=== PATIENT | female | born 1985 | race Caucasian/White ===

== ENCOUNTER 2024-03-09 11:58 | Observation (INO) ==
[2024-03-09] MEDS ORDERED: MoRPHine SULFATE 4 MG/ML 1 ML CARP\\VIAL IV PRN (12:10)
[2024-03-09] MEDS: ONDANSETRON INJ 2 MG/ML 2 ML VIAL IV STA (12:18)
[2024-03-09] MEDS: KETOROLAC TROMETHAMINE 15 MG/ML VIAL IV STA (12:18)
[2024-03-09] MEDS: MoRPHine SULFATE 4 MG/ML 1 ML CARP\\VIAL IV STA (12:19)
[2024-03-09] MEDS: SODIUM CHLORIDE 0.9% 1,000 ML IV STA (12:21)
[2024-03-09] MEDS: cefTRIAXone SODIUM 2,000 MG/50 ML BAG IV STA (12:21)
--- NOTE | 2024-03-09 12:30 | Emergency Department Note ---
Impression & Plan Acute right flank pain, Pyelonephritis, Leukocytosis, Failure of outpatient treatment ED Provider Note NAME: CLAUDIO LLANOS AGE: 38 SEX: F : 1985 ARRIVES VIA: Walk-In INFORMANT: [Patient] ED PROVIDER(S): [Rolando Sung MD] CHIEF COMPLAINT: Flank pain HISTORY OF PRESENT ILLNESS: The patient is a 38-year-old female whose had chills and fever for over a week. She states that 3 days ago, she began having some right flank and side pain. She presented to the ED yesterday and was diagnosed with pyelonephritis. The pyelonephritis was diagnosed based on the CT reading, the white blood cell count elevation, her urine results. The patient received IV ceftriaxone and was placed on Bactrim outpatient. The patient presents with increasing flank pain and sweats. She states that she feels no better, in fact, she is worse today. The patient has not had any urinary burning, she did notice some blood in her urine though over the last several days. PMHx/PSHx/Social Hx: See Below PHYSICAL EXAM: GENERAL: Patient is in mild distress from pain. HEENT: No acute trauma, normocephalic atraumatic, mucous membranes moist, no nasal congestion. NECK: No stridor, no adenopathy, no meningismus, trachea is midline. LUNGS: Clear to auscultation bilaterally, no wheeze, no rhonchi, breath sounds equal. HEART: Mildly tachycardic, regular rhythm, no murmurs. ABDOMEN: Soft, tender along the entire right side of the abdomen. EXTREMITIES: No cyanosis, full range of motion of all the joints without pain or difficulty. NEUROLOGIC: Oriented x 3, no acute motor or sensory deficits, no focal weakness. SKIN: No jaundice, no diaphoresis. Back: Right flank discomfort to percussion. DIFFERENTIAL DIAGNOSIS: Pyelonephritis, urinary obstruction, hydronephrosis, renal failure, failed outpatient management, among others. EMERGENCY DEPARTMENT PROCEDURES: MEDICAL DECISION MAKING: There is a mild leukocytosis, this could be consistent with infection. There is a normal hemoglobin. Platelet count slightly elevated at 448. Potassium slightly low, no renal failure. No evidence for pancreatitis. testing returned negative. CT imaging from yesterday did show findings of pyelonephritis without urinary obstruction. Renal ultrasound today did not show any hydronephrosis or urinary obstruction. Patient did seemed uncomfortable. She was given IV saline, IV Zofran, IV morphine. She was given IV Toradol. She was given IV ceftriaxone as antibiotic coverage. Patient has a right sided pyelonephritis, this has caused her presentation. She has failed outpatient treatment. Hospitalization is indicated. I did speak with the patient and case management, the on-call hospitalist was consulted. Prior/Outside records/notes reviewed: Yesterday's ED visit note describing her presentation, her care and the plan outpatient. Imaging/x-ray results per my interpretation: Chronic Medical/Social conditions affecting care: None Care/Management discussed with: Case management, the ED pharmacist, the on- call hospitalist. Level of care consideration(s): After review of the information above and other included data: --I believe the patient requires escalation of care to admission DISPOSITION: Admission Past Med/Surg History Problem List (Updated 03/09/24 @ 19:00 by Rolando Sung MD) Failure of outpatient treatment (Acute) Leukocytosis (Acute) Pyelonephritis (Acute) Acute right flank pain (Acute) Oral thrush Hypokalemia Hepatomegaly Sepsis Pyelonephritis of right kidney (Acute) No significant past surgical history Chest wall pain (Acute) Chest wall pain (Acute) Dental infection (Acute) Facial swelling (Acute) Pain, dental (Acute) Pain, dental (Acute) Scabies (Acute) Medical History Depression ADHD Scabies Infected tooth (03/27/13) Surgical History History of dental surgery Social History Smoking Status: Current every day smoker Tobacco Type: Cigarettes Cigarettes Per Day: 1 PPD; Hx Alcohol Use: No Hx Substance Use: No Preferred Language: Comoran Communication Ability: Effective Psychologist Industrial 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 Required: No Beliefs That Will Affect Care: None marital status: Single Current Living Situation: Alone current occupational status: employed Feels Safe at Home: Yes Safety Concerns: Feels Safe At This Time Assistive Devices: Denture - Upper and Denture - Lower Allergies Allergies Allergy/AdvReac Type Severity Reaction Status Date / Time No Known Allergies Allergy Verified 10/08/19 20:09 Home Meds Home Medications Medication Instructions Recorded Confirmed dextroamphetamine-amphetamine 20 30 mg PO QAM 05/21/19 03/09/24 mg tablet (Adderall) escitalopram oxalate 20 mg tablet 30 mg PO QAM 10/08/19 03/09/24 (Lexapro) alprazolam 0.5 mg tablet 0.5 mg PO BID PRN Anxiety 03/09/24 03/09/24 fluconazole 150 mg tablet 150 mg PO DAILY Oral Thrush 03/09/24 03/09/24 phenazopyridine 200 mg tablet 200 mg PO TID PRN Urinary Pain 03/09/24 03/09/24 (Pyridium) Previous Rx's Medication Instructions Recorded sulfamethoxazole 800 1 tab PO BID 14 days #28 tabs 03/08/24 mg-trimethoprim 160 mg tablet (Bactrim DS) Results & Data (ED) Vital Signs Vital Signs - 24 hr 03/09/24 12:00 Temperature 36.9 C Temperature Source Temporal Artery Scan Pulse Rate 112 H Respiratory Rate 20 Respiratory Effort / Characteristics Non-Labored Respiratory Depth Normal Blood Pressure 131/76 Blood Pressure Mean 94 Pulse Oximetry 100 Oxygen Delivery Method Room Air Sepsis Recent Fever Within 48 Hours No Sepsis New/Unexplained Change in Mental Status No Sepsis Action Taken by Nursing No Action Required Home Medications Current Medication List: was personally reviewed by me Laboratory Data Attestation: I reviewed the patient's lab results. 03/09/24 12:13 03/09/24 12:13 Lab Results 03/09/24 Range/Units 12:13 WBC 12.47 H (4.8-10.8) K/ul RBC 4.34 (4.20-5.40) M/uL Hgb 12.9 (12.0-16.0) g/dl Hct 37.9 (37.0-47.0) % MCV 87.3 (80.0-100.0) fL MCH 29.7 (25.0-34.0) pg MCHC 34.0 (32.0-36.0) g/dL RDW Std Deviation 43.8 (36.4-46.3) fL RDW Coeff of Larry 13.6 (11.5-14.5) % Plt Count 448 H D (130-400) K/uL MPV 9.6 (9.4-12.4) fL Immature Gran % (Auto) 0.6 % Neut % (Auto) 77.7 % Lymph % (Auto) 14.9 % [place] % (Auto) 5.9 % Eos % (Auto) 0.6 % Baso % (Auto) 0.3 % Neut # (Auto) 9.69 H (1.40-6.50) K/uL Lymph # (Auto) 1.86 (1.20-3.40) K/uL [place] # (Auto) 0.73 H (0.11-0.59) K/uL Eos # (Auto) 0.07 (0.00-0.50) K/uL Baso # (Auto) 0.04 (0.00-0.20) K/uL Immature Gran # (Auto) 0.08 (0.01-0.20) K/uL Sodium 136 (136-145) mmol/L Potassium 3.2 L (3.5-5.1) mmol/L Chloride 97 L (98-107) mmol/L Carbon Dioxide 27 (21-32) mmol/L Anion Gap 12 H (3-11) BUN 11 (6-23) mg/dl Creatinine 0.60 (0.6-1.2) mg/dl Est Cr Clr Drug Dosing 114.5 ml/min eGFR 118.49 BUN/Creatinine Ratio 18.3 (10-20) Glucose 120 H (70-99(Fasting)) mg/dl Calcium 9.0 (8.6-10.3) mg/dl Lipase 11 (11-82) U/L HCG, Qual Negative (Negative) Administered Medications Acetaminophen (Acetaminophen 325 Mg Tab) 650 mg PO Q6H PATT Stop: 04/08/24 15:59 Last Admin: 03/09/24 16:41 Dose: 650 mg Documented By: DERECK Enoxaparin Sodium (Enoxaparin Inj 40 Mg/0.4 Ml Syr) 40 mg SQ DAILY PATT Stop: 04/08/24 15:59 Last Admin: 03/09/24 16:43 Dose: Not Given Documented By: DERECK Sodium Chloride (Nss) 1,000 mls @ 60 mls/hr IV .[id number] PATT Stop: 03/10/24 08:39 Last Admin: 03/09/24 16:06 Dose: 60 mls/hr Documented By: DERECK Lactobacillus Acidophilus (Advanced Probiotic 625 Mg Capsule) 1,250 mg PO DAILY [facility] Stop: 04/08/24 15:55 Last Admin: 03/09/24 16:43 Dose: 1,250 mg Documented By: DERECK Morphine Sulfate (Morphine Sulfate 2 Mg/Ml Carp) 1 mg IV Q4H PRN PRN Reason: Mod-Sev Pain (Scale 4-10) Stop: 03/23/24 15:55 Last Admin: 03/09/24 17:32 Dose: 1 mg Documented By: DERECK Nystatin (Nystatin Susp 500,000 U/5 Ml Udc) 5 ml PO QID PATT Stop: 03/19/24 16:59 Last Admin: 03/09/24 16:42 Dose: 5 ml Documented By: DERECK Ondansetron HCl (Ondansetron Inj 2 Mg/Ml 2 Ml Vial) 4 mg IV Q6H PRN PRN Reason: Nausea/Vomiting Stop: 04/08/24 15:55 Last Admin: 03/09/24 17:32 Dose: 4 mg Documented By: DERECK Phenazopyridine HCl (Phenazopyridine Hcl 100 Mg Tab) 100 mg PO TID PRN PRN Reason: Dysuria Stop: 04/08/24 15:55 Last Admin: 03/09/24 16:42 Dose: 100 mg Documented By: DERECK Discontinued Medications Sodium Chloride (Nss) 1,000 mls @ 999 mls/hr IV .Q1H1M STA Stop: 03/09/24 13:10 Last Infusion: 03/09/24 14:11 Dose: Infused Documented By: Admin: 03/09/24 12:21 Dose: 999 mls/hr Documented By: VENITA Ceftriaxone Sodium (Rocephin) 2,000 mg in 50 mls @ 100 mls/hr IV NOW STA Stop: 03/09/24 12:40 Last Infusion: 03/09/24 12:53 Dose: Infused Documented By: Admin: 03/09/24 12:21 Dose: 100 mls/hr Documented By: VENITA Potassium Chloride (K Martinez / Wtr) 10 meq in 100 mls @ 100 mls/hr IV Q1H [facility]; Protocol Stop: 03/09/24 16:59 Last Infusion: 03/09/24 18:54 Dose: Infused Documented By: Admin: 03/09/24 17:32 Dose: 75 mls/hr Documented By: Infusion: 03/09/24 17:26 Dose: Infused Documented By: Admin: 03/09/24 16:06 Dose: 75 mls/hr Documented By: Infusion: 03/09/24 15:43 Dose: Infused Documented By: Admin: 03/09/24 14:23 Dose: 75 mls/hr Documented By: Infusion: 03/09/24 14:23 Dose: Infused Documented By: Infusion: 03/09/24 13:45 Dose: 75 mls/hr Documented By: Admin: 03/09/24 13:13 Dose: 100 mls/hr Documented By: VENITA Ketorolac Tromethamine (Ketorolac Tromethamine 15 Mg/Ml Vial) 10 mg IV NOW STA Stop: 03/09/24 12:11 Last Admin: 03/09/24 12:18 Dose: 10 mg Documented By: VENITA Morphine Sulfate (Morphine Sulfate 4 Mg/Ml 1 Ml Carp\Vial) 4 mg IV NOW STA Stop: 03/09/24 12:11 Last Admin: 03/09/24 12:19 Dose: 4 mg Documented By: VENITA Ondansetron HCl (Ondansetron Inj 2 Mg/Ml 2 Ml Vial) 4 mg IV NOW STA Stop: 03/09/24 12:11 Last Admin: 03/09/24 12:18 Dose: 4 mg Documented By: VENITA Imaging Data Radiologist's Impression: Renal Ultrasound 03/09/24 12:10 US renal/blad retro comp CLINICAL HISTORY: flank pain TECHNIQUE: Multiple sonographic real-time images of the kidneys and bladder were obtained. COMPARISON: Comparison is made to CT abdomen pelvis 03/08/2024 FINDINGS: The right kidney measures 14.9 cm in length, and the left kidney measures 13.9 cm in length. The right kidney is normal in size, contour, cortical thickness, and is mildly heterogeneous. No hydronephrosis is identified. No renal lesion is identified. The left kidney is normal in size, contour, cortical thickness and is mildly heterogeneous. No hydronephrosis is identified. No renal lesion is identified. The bladder is partially distended. No large intraluminal mass is seen. IMPRESSION: No acute abnormalities and in particular no evidence of obstruction. Heterogeneous echotexture of the kidneys is nonspecific. ACT 112: Negative or not required by law. Electronically signed by: Channing Prather M.D. 03/09/2024 2:37 PM Discharge Plan Visit Data Chief Complaint: Flank Pain Stated Complaint: RT KIDNEY INFECTION ED Provider: Rolando Sung Discharge Problem: Acute right flank pain, Pyelonephritis, Leukocytosis, Failure of outpatient treatment Patient Disposition: Admitted As Inpatient Condition: Fair Discharge Instructions Interventions: ED Discharge Assessment Last Done: 03/09/24 15:46 Discharge Problem: Leukocytosis Qualifiers: Leukocytosis type: unspecified Qualified Code(s): D72.829 - Elevated white blood cell count, unspecified
[2024-03-09 12:35] LABS: Hematocrit (blood only) 37.9 % (37.0-47.0); Hemoglobin 12.9 g/dl (12.0-16.0); Mean Corpuscular Hemoglobin 29.7 pg (25.0-34.0); Mean Corpuscular Volume 87.3 fL (80.0-100.0); Mean Platelet Volume 9.6 fL (9.4-12.4); Platelet Count 448 K/uL (130-400); RDW Coefficient of Variation 13.6 % (11.5-14.5); RDW Standard Deviation 43.8 fL (36.4-46.3); Red Blood Count 4.34 M/uL (4.20-5.40); White Blood Count 12.47 K/ul (4.8-10.8)
--- NOTE | 2024-03-09 12:42 | History & Physical Report ---
Date of Service March 09, 2024 Assessment & Plan (1) Sepsis: (2) Pyelonephritis of right kidney: (3) Hepatomegaly: (4) Oral thrush: (5) Hypokalemia: Plan Lilliam Camacho is a 38y/o F with PMHx significant for chronic rhinitis, contact dermatitis, major depressive disorder, ADHD, anxiety and insomnia who presented to the ED on 03/09/2024 secondary to worsening right-sided flank pain. Of note, patient was seen in the ED yesterday due to right-sided flank pain and found to have right-sided pyelonephritis. She received 1g IV Rocephin in the ED and was discharged on a 14-day course of oral Bactrim without significant improvement in her right-sided flank pain. Sepsis 2/2 Pyelonephritis of R Kidney: Met sepsis criteria on admission 2/2 tachycardia, leukocytosis + source of infection. S/p 1L NSS in the ED. CTAP from 03/08 --> Edematous right kidney, mild right perinephritic edema and fluid, mildly inflamed right urinary tract. WBC improving from 18k on 03/08 -> 12k today. Urine culture from 03/08 growing E. coli, sensitivities to follow. Urology consulted. US renal/bladder pending from ED. Continue IV Rocephin. Probiotic added on. PRN pain control, additional 1L LR's x 1 bag. Continue phenazopyridine PRN for dysuria. Blood cultures pending. Hepatomegaly: Was incidentally noted on CTAP yesterday. Will check LFTs in AM, may benefit from liver US. Oral Thrush - [employer]: Patient being treated for oral thrush [employer]. Will continue Nystatin swish+swallow, continue to monitor. Hypokalemia: K+ 3.2 on admission - repleted via IV 10mEq KCl x 4 bags in the ED. Recheck electrolytes in AM and manage PRN. Other Chronic Medical Conditions: ADHD, depression/anxiety --> Can continue home medications for these specific conditions while admitted. DVT Prophylaxis: SQ Lovenox Code Status: FULL CODE PCP: Rodrigue Diallo MD Disposition: Observation in Med/Telemetry Patient seen in collaboration with Dr. Ramos. Please see addendum. I spent a total of 55 minutes coordinating, documenting, and providing care for this patient excluding time spent in the performance of separately billed services. This included personally reviewing all current laboratories and imaging studies, medical reconciliation, outpatient chart review and discussion with specialists. This chart was completed in part utilizing Speech Voice Recognition Software. Grammatical errors, random word insertions, pronoun errors, and incomplete sentences are an occasional consequence of this system due to software limitations, ambient noise, and hardware issues. Any formal questions or concerns about the content, text, or information contained within the body of this dictation should be directly addressed to the provider for clarification. History of Present Illness Chief Complaint: Worsening Right-Sided Flank Pain, Recent Diagnosis of Pyelonephritis Primary Care Provider: Rodrigue Diallo MD Lilliam Camacho is a 38y/o F with PMHx significant for chronic rhinitis, contact dermatitis, major depressive disorder, ADHD, anxiety and insomnia who presented to the ED on 03/09/2024 secondary to worsening right-sided flank pain. History obtained from patient and associated chart review. Of note, patient was seen and evaluated in the ED yesterday due to right-sided flank pain. Additional complaints per ER documentation at that time included chills/intermittent fevers, foul-smelling urine, urinary urgency and dysuria. UA was positive for infection, WBC was elevated at 18k. CTAP yesterday revealed the following: edematous right kidney, mild right perinephritic edema and fluid, mildly inflamed right urinary tract and hepatomegaly. She received 1g IV Rocephin in the ED and was discharged on a 14-day course of oral Bactrim. Patient reports that the right-sided flank pain has progressively gotten worse since yesterday - mentions this pain started about 3 days ago. She woke up in the middle of the night drenched in sweat and battling chills. No recorded fever overnight however she has had intermittent fevers for the past week or so - highest recorded fever at home was 102F. Her dysuria is improving as she is taking phenazopyridine. She denies any yo blood in her urine however she endorses this is difficult to tell due to the orange-colored appearance her urine has due to taking the phenazopyridine. She still endorses that her urine is foul-smelling. She has been battling some intermittent nausea but no episodes of vomiting. Endorses good hydration status at home however her appetite has been overall poor - most recent meal was last evening and consisted of 2 tacos. She reports that she has been feeling fatigued and overall weak for the past week or so. No prior alcohol use. Patient does smoke cigarettes - approximately 1 pack/day, but has not been smoking over the past 3 days due to this right- sided flank pain. Denies need for nicotine patch at this time. Mentions that she has a medical marijuana card for her anxiety/depression but has not been using any marijuana for the past week or so due to her feeling so ill. She denies any chest pain, SOB or palpitations. She did have 1 episode of diarrhea yesterday morning which has since resolved. She reports her right-sided flank pain is typically sharp and worse with movement. Denies any previous kidney issues or history of recurrent UTIs. Patient does wear dentures at baseline and was being treated for oral thrush prior to arrival - this has not yet resolved entirely. Patient does meet sepsis criteria on admission secondary to tachycardia, leukocytosis and known source of infection. WBC is improving from 18k yesterday to 12.4k today. S/p 2g IV Rocephin, 1L NSS in the ED. She also received IV Zofran and IV morphine in the ED - reports her pain is controlled during our conversation when she is at rest. Allergies Allergy/AdvReac Type Severity Reaction Status Date / Time No Known Allergies Allergy Verified 10/08/19 20:09 Home Medications Medication Instructions Recorded Confirmed Type dextroamphetamine-amphetamine 20 30 mg PO QAM 05/21/19 03/09/24 History mg tablet (Adderall) escitalopram oxalate 20 mg tablet 30 mg PO QAM 10/08/19 03/09/24 History (Lexapro) sulfamethoxazole 800 1 tab PO BID 14 days #28 tabs 03/08/24 03/09/24 Rx mg-trimethoprim 160 mg tablet (Bactrim DS) alprazolam 0.5 mg tablet 0.5 mg PO BID PRN Anxiety 03/09/24 03/09/24 History fluconazole 150 mg tablet 150 mg PO DAILY Oral Thrush 03/09/24 03/09/24 History phenazopyridine 200 mg tablet 200 mg PO TID PRN Urinary Pain 03/09/24 03/09/24 History (Pyridium) Past Med/Surg History Problem List Oral thrush Hypokalemia Hepatomegaly Sepsis Pyelonephritis of right kidney (Acute) No significant past surgical history Chest wall pain (Acute) Chest wall pain (Acute) Dental infection (Acute) Facial swelling (Acute) Pain, dental (Acute) Pain, dental (Acute) Scabies (Acute) Medical History Depression ADHD Scabies Infected tooth (03/27/13) Surgical History History of dental surgery Social History Smoking Status: Current every day smoker Tobacco Type: Cigarettes Preferred Language: Latvian marital status: Single current occupational status: employed Feels Safe at Home: Yes Review of Systems Review of Systems: At least ten systems reviewed and negative, except as noted in the HPI. Physical Exam Physical Exam: General: Thin, ill-appearing, vitals as above, NAD, sitting up in bed, pleasant, conversing appropriately. A+Ox3, euthymic affect. HEENT: Normocephalic, atraumatic. Conjunctivae normal, anicteric sclerae. External ear and nose normal, oropharynx little dry. Respiratory: Normal respiratory effort, lungs clear to auscultation, no wheeze/rales/rhonchi. No accessory muscle use. Cardiovascular: Regular rate, rhythm, normal peripheral pulses, no BLE edema. Vessels: No JVD. Abdomen/GI: Active bowel sounds, TTP in RUQ and RLQ regions, R CVA tenderness. No L CVA tenderness. Extremities/Musculoskeletal: No cyanosis or clubbing, extremities motor strength intact, moves all extremities. Neurologic: No overt focal deficits, CN's II-XI not formally tested but appear grossly intact bilaterally. Skin: No rashes, normal color, warm/dry. Results & Data Results & Data Vital Signs (Past 12 Hours) Vital Signs Temp Pulse Resp BP Pulse Ox O2 Del Method 03/09/24 12:00 36.9 C 112 H 20 131/76 100 Room Air Laboratory Results Short CBC 03/09/24 Range/Units 12:13 WBC 12.47 H (4.8-10.8) K/ul Hgb 12.9 (12.0-16.0) g/dl Hct 37.9 (37.0-47.0) % Plt Count 448 H D (130-400) K/uL [facility] 03/09/24 12:13 Sodium 136 Potassium 3.2 L Chloride 97 L Carbon Dioxide 27 BUN 11 Creatinine 0.60 Glucose 120 H Calcium 9.0 Medications Administered Sodium Chloride (Nss) 1,000 mls @ 999 mls/hr IV .Q1H1M STA Stop: 03/09/24 13:10 Last Admin: 03/09/24 12:21 Dose: 999 mls/hr Documented By: VENITA Discontinued Medications Ceftriaxone Sodium (Rocephin) 2,000 mg in 50 mls @ 100 mls/hr IV NOW STA Stop: 03/09/24 12:40 Last Admin: 03/09/24 12:21 Dose: 100 mls/hr Documented By: VENITA Ketorolac Tromethamine (Ketorolac Tromethamine 15 Mg/Ml Vial) 10 mg IV NOW STA Stop: 03/09/24 12:11 Last Admin: 03/09/24 12:18 Dose: 10 mg Documented By: VENITA Morphine Sulfate (Morphine Sulfate 4 Mg/Ml 1 Ml Carp\Vial) 4 mg IV NOW STA Stop: 03/09/24 12:11 Last Admin: 03/09/24 12:19 Dose: 4 mg Documented By: VENITA Ondansetron HCl (Ondansetron Inj 2 Mg/Ml 2 Ml Vial) 4 mg IV NOW STA Stop: 03/09/24 12:11 Last Admin: 03/09/24 12:18 Dose: 4 mg Documented By: VENITA Code Status & VTE Plan Code Status FULL CODE Supervising Physician Co-Signing Physician Notes 38-year-old female with PMH of chronic rhinitis, contact dermatitis, major depressive disorder, ADHD, anxiety, insomnia presented to the ED 03/18 for right flank pain and diagnosed with right-sided pyelonephritis, given rocephin in ED and sent home on Bactrim. Patient reports that she had high fever in the night (didn't measure), was drenched in sweat, had chills, felt worse, decided to come to the ED 03/09. Patient reports having fever since last 1 week ago [employer], reports right-sided flank pain since 3 to 4 days ago, reports pain and burning while passing urine since 3 to 4 days. Denies any purulent discharge, denies any genitourinary ulcers. Denies any history of recurrent UTI. WBC in fact is improving today, patient still tachycardic, patient in sepsis se condary to pyelonephritis. Will continue Rocephin, add probiotic, urology consult, draw blood culture. Gentle ivf x 1 bag LR. Hypokalemia: K 3.2, give KCL 40 meq. On exam: GENERAL: Alert and oriented x3. NAD, on RA. appears ill HEENT: No pallor, no icterus. Pupils equal, round and reactive to light. Oral mucosa dry. NECK: No JVD, no neck masses. HEART: S1 and S2 heard. Regular rate and rhythm. HR in 90s. No murmur, no gallop. RESPIRATORY SYSTEM: Normal AP diameter. No accessory muscle use. No wheezing, no crackles. ABDOMEN: Soft, bowel sounds present, Rt lumbar tenderness, no distention. CENTRAL NERVOUS SYSTEM: No facial droop. Speech is clear. Obeys simple commands. Moves extremities. EXTREMITIES: No edema, no erythema seen. Rt CVA tenderness noted, no Lt CVA tender. I have seen and examined the patient and have discussed the case with the provider above. I agree with the assessment and plan as stated. Time spent: 30 min (1) Sepsis Sepsis acute organ dysfunction status: without acute organ dysfunction Sepsis type: sepsis due to unspecified organism Qualified Code(s): A41.9 - Sepsis, unspecified organism
[2024-03-09 12:47] LABS: BUN Creatinine Ratio 18.3 (10-20); Creatinine Clr Calc Pharmacy 114.5 ml/min; Potassium 3.2 mmol/L (3.5-5.1)
[2024-03-09 13:01] LABS: Basophils # (auto) 0.04 K/uL (0.00-0.20); Basophils % (auto) 0.3 %; Eosinophils # (auto) 0.07 K/uL (0.00-0.50); Eosinophils % (auto) 0.6 %; Immature Granulocytes # (auto) 0.08 K/uL (0.01-0.20); Immature Granulocytes % (auto) 0.6 %; Lymphocytes # (auto) 1.86 K/uL (1.20-3.40); Lymphocytes % (auto) 14.9 %; Monocytes # (auto) 0.73 K/uL (0.11-0.59); Monocytes % (auto) 5.9 %; Neutrophils # (auto) 9.69 K/uL (1.40-6.50); Neutrophils % (auto) 77.7 %; Pregnancy Test, Serum Negative (Negative)
[2024-03-09] MEDS: POTASSIUM CHLORIDE / WTR 10 MEQ/100 ML PLCT IV SCH (13:13)
--- NOTE | 2024-03-09 14:39 | Ultrasound Report ---
US renal/blad retro comp CLINICAL HISTORY: flank pain TECHNIQUE: Multiple sonographic real-time images of the kidneys and bladder were obtained. COMPARISON: Comparison is made to CT abdomen pelvis 03/08/2024 FINDINGS: The right kidney measures 14.9 cm in length, and the left kidney measures 13.9 cm in length. The right kidney is normal in size, contour, cortical thickness, and is mildly heterogeneous. No hydr onephrosis is identified. No renal lesion is identified. The left kidney is normal in size, contour, cortical thickness and is mildly heterogeneous. No hydro nephrosis is identified. No renal lesion is identified. The bladder is partially distended. No large intraluminal mass is seen. IMPRESSION: No acute abnormalities and in particular no evidence of obstruction. Heterogeneous echotexture of the kidneys is nonspecific. ACT 112: Negative or not required by law. Electronically signed by: Channing Prather M.D. 03/09/2024 2:37 PM
[2024-03-09] MEDS ORDERED: POLYETHYLENE (MIRALAX) 17 GM PACK PO PRN (15:56)
[2024-03-09] MEDS: SODIUM CHLORIDE 0.9% 1,000 ML IV SCH (16:06)
[2024-03-09] MEDS: ACETAMINOPHEN 325 MG TAB PO SCH (16:41)
[2024-03-09] MEDS: PHENAZOPYRIDINE HCL 100 MG TAB PO PRN (16:42)
[2024-03-09] MEDS: NYSTATIN SUSP 500,000 U/5 ML UDC PO SCH (16:42)
[2024-03-09] MEDS: ADVANCED PROBIOTIC 625 MG CAPSULE PO SCH (16:43)
[2024-03-09] MEDS: ENOXAPARIN INJ 40 MG/0.4 ML SYR SQ SCH (16:43)
--- NOTE | 2024-03-09 16:51 | Urology Consultation ---
Date of Consultation March 09, 2024 Assessment & Plan (1) Pyelonephritis of right kidney: Plan - Afebrile with stable vitals at present - Labs show mild leukocytosis of 12.47 normal renal function - Urine culture prelim E. coli; blood cultures pending - Voiding spontaneously, continue to monitor. Bladder scan as needed. - CT abdomen pelvis from 03/08 shows right kidney is edematous, mild right perinephric edema and fluid, mildly inflamed right urinary tract. - Renal ultrasound today shows no acute abnormalities and no evidence of obstruction. - No acute intervention warranted - Continue antibiotics and tailor as culture data becomes available - Continue supportive care - Will arrange outpatient follow-up with our service - Urology will sign off. Please call with any further questions, concerns, or changes in patient status. History of Present Illness Attending Physician: Lili Ramos MD History of Present Illness 38-year-old female who presented to the ED on 03/09/2024 secondary to worsening right flank pain. Patient was seen in the ED yesterday 03/08 due to right-sided flank pain and found to have right-sided pyelonephritis. She received 1g of IV Rocephin in the ED and was discharged home on a 14-day course of oral Bactrim. Due to worsening right flank pain, she returned to the ED today. On arrival she was afebrile and tachycardic. Labs show WBC improving from 18K- 12K today. Normal renal function. Urine culture from 03/08 preliminary with E. coli. Blood culture pending. CT abdomen pelvis from 03/08 shows right kidney is edematous, mild right perinephric edema and fluid, mildly inflamed right urinary tract. Renal ultrasound today shows no acute abnormalities and no evidence of obstruction. She is on IV Rocephin. Pt admitted to medicine service. Urology consulted for Right sided pyelonephritis. Patient was seen at bedside today in the ED. Awake and resting in bed on arrival. No acute distress. Patient denies prior history. She denies history of UTI. She reports approximately 1 week of UTI-like symptoms including chills, malodorous urine. She then developed severe right flank pain which prompted her arrival in the ED. Denies hematuria, dysuria, fever. Allergies Allergy/AdvReac Type Severity Reaction Status Date / Time No Known Allergies Allergy Verified 10/08/19 20:09 Home Medications Medication Instructions Recorded Confirmed Type dextroamphetamine-amphetamine 20 30 mg PO QAM 05/21/19 03/09/24 History mg tablet (Adderall) escitalopram oxalate 20 mg tablet 30 mg PO QAM 10/08/19 03/09/24 History (Lexapro) sulfamethoxazole 800 1 tab PO BID 14 days #28 tabs 03/08/24 03/09/24 Rx mg-trimethoprim 160 mg tablet (Bactrim DS) alprazolam 0.5 mg tablet 0.5 mg PO BID PRN Anxiety 03/09/24 03/09/24 History fluconazole 150 mg tablet 150 mg PO DAILY Oral Thrush 03/09/24 03/09/24 History phenazopyridine 200 mg tablet 200 mg PO TID PRN Urinary Pain 03/09/24 03/09/24 History (Pyridium) Patient History Medical History Depression ADHD Scabies Infected tooth (03/27/13) Surgical History History of dental surgery Social History Smoking Status: Current every day smoker Tobacco Type: Cigarettes Cigarettes Per Day: 1 PPD; Hx Alcohol Use: No Hx Substance Use: No Preferred Language: Tunisian Communication Ability: Effective Car Escort Required: No Beliefs That Will Affect Care: None marital status: Single Current Living Situation: Alone current occupational status: employed Feels Safe at Home: Yes Safety Concerns: Feels Safe At This Time Assistive Devices: Denture - Upper and Denture - Lower Review of Systems Review of Systems: All systems reviewed & are unremarkable except as noted in HPI & below Physical Exam Constitutional: no acute distress Respiratory: no respiratory distress and no labored breathing Musculoskeletal: Head/Neck/Chest: normocephalic Skin: No visible rashes or lesions to exposed skin areas Neurologic: moves all extremities and awake Psychiatric: A+Ox3, euthymic affect Results & Data Vital Signs (Past 12 Hours) Vital Signs Temp Pulse Pulse Resp BP BP Pulse Ox 03/09/24 16:20 91 H 03/09/24 15:56 36.8 C 89 16 117/72 100 03/09/24 15:46 03/09/24 14:15 79 16 94/54 L 99 03/09/24 13:06 92 H 03/09/24 12:00 36.9 C 112 H 20 131/76 100 O2 Del Method 03/09/24 16:20 03/09/24 15:56 Room Air 03/09/24 15:46 Room Air 03/09/24 14:15 Room Air 03/09/24 13:06 03/09/24 12:00 Room Air PG Care Time/CCT Total # of Minutes Spent Total Time Spent with Patient: Total time spent is greater than 50% in coordination of care (as documented) at patient's floor/unit and/or counseling patient: Coding Level of Care Code 39529 IN/OBS CONSULT LVL 3,45M Diagnoses Pyelonephritis of right kidney N12
[2024-03-09] MEDS: ONDANSETRON INJ 2 MG/ML 2 ML VIAL IV PRN (17:32)
[2024-03-09] MEDS: MoRPHine SULFATE 2 MG/ML CARP IV PRN (17:32)
[2024-03-10 07:03] LABS: Hematocrit (blood only) 30.5 % (37.0-47.0); Hemoglobin 10.2 g/dl (12.0-16.0); Mean Corpuscular Hemoglobin 30.1 pg (25.0-34.0); Mean Corpuscular Hgb Conc 33.4 g/dL (32.0-36.0); Mean Platelet Volume 9.6 fL (9.4-12.4); Platelet Count 458 K/uL (130-400); RDW Standard Deviation 46.6 fL (36.4-46.3); Red Blood Count 3.39 M/uL (4.20-5.40); White Blood Count 8.16 K/ul (4.8-10.8)
[2024-03-10 07:23] LABS: Albumin Globulin Ratio 0.7 (0.9-2); Albumin Level 2.6 gm/dl (3.4-5.0); BUN Creatinine Ratio 27.6 (10-20); Bilirubin,Total 0.3 mg/dl (0.2-1.0); Calcium 8.1 mg/dl (8.6-10.3); Creatinine Clr Calc Pharmacy 119.5 ml/min; Globulin 3.5 gm/dl (2.5-4.0); Magnesium 1.8 mg/dl (1.7-2.4); Phosphorus 3.8 mg/dl (2.5-4.9); Total Protein 6.1 gm/dl (6.0-8.3)
--- NOTE | 2024-03-10 07:57 | Electrocardiogram Report ---
Test Reason : Blood Pressure : */* mmHG Vent. Rate : 83 BPM Atrial Rate : 83 BPM P-R Int : 136 ms QRS Dur : 78 ms QT Int : 364 ms P-R-T Axes : 71 25 49 degrees QTcB Int : 427 ms Poor data quality, interpretation may be adversely affected Normal sinus rhythm Normal ECG When compared with ECG of 24-Sep-2013 08:02, Nonspecific T wave abnormality no longer evident in Inferior leads Confirmed by Orlin Araujo ([id number]) on 03/10/2024 7:57:14 AM Referred By: REFERRED SELF Confirmed By: Orlin Araujo
[2024-03-10] MEDS: DEXTROAMPHETAMINE/AMPHETAMINE IR 10 MG TAB PO SCH (08:45)
[2024-03-10] MEDS: cefTRIAXone SODIUM 2,000 MG/50 ML BAG IV SCH (08:46)
[2024-03-10] MEDS: ESCITALOPRAM OXALATE 10 MG TAB PO SCH (08:47)
[2024-03-10] MEDS: ALPRAZolam 0.5 MG TABLET PO PRN (12:28)
--- NOTE | 2024-03-10 15:49 | Hospitalist Progress Note ---
Date of Service March 10, 2024 Assessment & Plan (1) Sepsis: (2) Pyelonephritis of right kidney: (3) Hepatomegaly: (4) Oral thrush: (5) Hypokalemia: Plan Lilliam Camacho is a 38y/o F with PMHx significant for chronic rhinitis, contact dermatitis, major depressive disorder, ADHD, anxiety and insomnia who presented to the ED on 03/09/2024 secondary to worsening right-sided flank pain. Of note, patient was seen in the ED yesterday due to right-sided flank pain and found to have right-sided pyelonephritis. She received 1g IV Rocephin in the ED and was discharged on a 14-day course of oral Bactrim without significant improvement in her right-sided flank pain. Patient admitted for pyelonephritis. Cultures with fitzpatrick-sensitive ecoli. Will transition to PO cipro for pyelo, likely dispo tomorrow. #Sepsis 2/2 Pyelonephritis of R Kidney: Met sepsis criteria on admission 2/2 tachycardia, leukocytosis + source of infection. S/p 1L NSS in the ED. CTAP from 03/08 --> Edematous right kidney, mild right perinephritic edema and fluid, mildly inflamed right urinary tract. WBC improving from 18k on 03/08 -> 12k today. Urine culture from 03/08 growing E. coli, sensitivities to follow. Urology consulted. US renal/bladder pending from ED. Continue IV Rocephin. Probiotic added on. PRN pain control, additional 1L LR's x 1 bag. Continue phenazopyridine PRN for dysuria. Blood cultures NGTD Transition to Ciprofloxacin BID in am, likely discharge tomorrow morning Hepatomegaly: Was incidentally noted on CTAP yesterday. LFTS stable, no symptoms. 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 Will continue Nystatin swish+swallow, continue to monitor. Hypokalemia: K+ 3.2 on admission - repleted via IV 10mEq KCl x 4 bags in the ED. Recheck electrolytes in AM and manage PRN. Other Chronic Medical Conditions: ADHD, depression/anxiety --> Can continue home medications for these specific conditions while admitted. DVT Prophylaxis: SQ Lovenox Code Status: FULL CODE PCP: Rodrigue Diallo MD Disposition: Observation in Med/Telemetry Admission and Anticipated Discharge Date Admission Date: March 09, 2024 Subjective NAEO Doing much better, just feeling tired now No nausea or vomiting or other acute concerns Physical Exam Constitutional: WD/WN, vitals as above Respiratory: normal respiratory effort, lungs clear to auscultation Cardiovascular: RRR, no murmur, no edema Gastrointestinal (Abdomen): normal bowel sounds, soft, nontender, no hepatosplenomegaly Results & Data Results & Data Vital Signs (Past 12 Hours) Vital Signs Temp Pulse Pulse Pulse Resp BP Pulse Ox 03/10/24 15:36 37.0 C 79 18 105/66 99 03/10/24 15:10 87 03/10/24 11:26 36.6 C 79 18 104/70 99 03/10/24 07:56 88 03/10/24 07:19 36.9 C 79 18 94/57 L 97 03/10/24 04:00 37.0 C 79 18 105/66 98 O2 Del Method 03/10/24 15:36 Room Air 03/10/24 15:10 03/10/24 11:26 Room Air 03/10/24 07:56 03/10/24 07:19 Room Air 03/10/24 04:00 Room Air Laboratory Results Short CBC 03/10/24 Range/Units 06:25 WBC 8.16 (4.8-10.8) K/ul Hgb 10.2 L (12.0-16.0) g/dl Hct 30.5 L (37.0-47.0) % Plt Count 458 H (130-400) K/uL BMP 03/10/24 06:25 Sodium 138 Potassium 4.0 D Chloride 103 Carbon Dioxide 29 BUN 16 Creatinine 0.58 L Glucose 140 H Calcium 8.1 L Liver Function 03/10/24 Range/Units 06:25 Total Bilirubin 0.3 (0.2-1.0) mg/dl AST 29 (13-39) U/L ALT 33 (7-52) U/L Alkaline Phosphatase 108 H (34-104) U/L Albumin 2.6 L (3.4-5.0) gm/dl Medications Administered Home Medications Medication Instructions Recorded Confirmed Last Taken dextroamphetamine-amphetamine 20 30 mg PO QAM 05/21/19 03/09/24 05/21/19 mg tablet (Adderall) escitalopram oxalate 20 mg tablet 30 mg PO QAM 10/08/19 03/09/24 Unknown (Lexapro) sulfamethoxazole 800 1 tab PO BID 14 days #28 tabs 03/08/24 03/09/24 Unknown mg-trimethoprim 160 mg tablet (Bactrim DS) alprazolam 0.5 mg tablet 0.5 mg PO BID PRN Anxiety 03/09/24 03/09/24 Unknown fluconazole 150 mg tablet 150 mg PO DAILY Oral Thrush 03/09/24 03/09/24 Unknown phenazopyridine 200 mg tablet 200 mg PO TID PRN Urinary Pain 03/09/24 03/09/24 Unknown (Pyridium) Active Medications Generic Name Dose Route Start Last Admin Trade Name Freq PRN Reason Stop Dose Admin Acetaminophen 650 mg 03/09/24 16:00 03/10/24 11:03 Acetaminophen 325 Mg Tab PO 04/08/24 15:59 650 mg Q6H PATT Administration Alprazolam 0.5 mg 03/09/24 13:33 03/10/24 12:28 Alprazolam 0.5 Mg Tablet PO 04/08/24 13:32 0.5 mg BID PRN Administration Anxiety Amphetamine/Dextroamphetamine 30 mg 03/10/24 09:00 03/10/24 08:45 Dextroamphetamine/Amphetamine Ir 10 Mg Tab PO 03/24/24 08:59 30 mg QAM PATT Administration Enoxaparin Sodium 40 mg 03/09/24 16:00 03/10/24 09:45 Enoxaparin Inj 40 Mg/0.4 Ml Syr SQ 04/08/24 15:59 Not Given DAILY PATT Escitalopram Oxalate 30 mg 03/10/24 09:00 03/10/24 08:47 Escitalopram Oxalate 10 Mg Tab PO 04/09/24 08:59 30 mg QAM PATT Administration Ceftriaxone Sodium 2,000 mg in 50 mls @ 100 mls/hr 03/10/24 09:00 03/10/24 09:16 Rocephin IV 03/17/24 08:59 Infused Q24H PATT Infusion Lactobacillus Acidophilus 1,250 mg 03/09/24 15:56 03/10/24 08:47 Advanced Probiotic 625 Mg Capsule PO 04/08/24 15:55 1,250 mg DAILY PATT Administration Morphine Sulfate 1 mg 03/09/24 15:56 03/10/24 05:49 Morphine Sulfate 2 Mg/Ml Carp IV 03/23/24 15:55 1 mg Q4H PRN Administration Mod-Sev Pain (Scale 4-10) Nystatin 5 ml 03/09/24 17:00 03/10/24 14:53 Nystatin Susp 500,000 U/5 Ml Udc PO 03/19/24 16:59 Not Given QID PATT Ondansetron HCl 4 mg 03/09/24 15:56 03/10/24 05:49 Ondansetron Inj 2 Mg/Ml 2 Ml Vial IV 04/08/24 15:55 4 mg Q6H PRN Administration Nausea/Vomiting Phenazopyridine HCl 100 mg 03/09/24 15:56 03/10/24 08:46 Phenazopyridine Hcl 100 Mg Tab PO 04/08/24 15:55 100 mg TID PRN Administration Dysuria (1) Sepsis Sepsis type: sepsis due to unspecified organism Sepsis acute organ dysfunction status: without acute organ dysfunction Qualified Code(s): A41.9 - Sepsis, unspecified organism
[2024-03-10] MEDS: CIPROFLOXACIN 500 MG TAB PO SCH (20:46)
[2024-03-11 08:04] VITALS: RESP 20
--- NOTE | 2024-03-11 11:38 | Hospitalist Progress Note ---
Date of Service March 11, 2024 Assessment & Plan (1) Sepsis: (2) Pyelonephritis of right kidney: (3) Hepatomegaly: (4) Oral thrush: (5) Hypokalemia: Plan Per previous hospitalist service notes with addendum: Lilliam Camacho is a 38y/o F with PMHx significant for chronic rhinitis, contact dermatitis, major depressive disorder, ADHD, anxiety and insomnia who presented to the ED on 03/09/2024 secondary to worsening right-sided flank pain. Of note, patient was seen in the ED yesterday due to right-sided flank pain and found to have right-sided pyelonephritis. She received 1g IV Rocephin in the ED and was discharged on a 14-day course of oral Bactrim without significant improvement in her right-sided flank pain. Patient admitted for pyelonephritis. Cultures with fitzpatrick-sensitive ecoli. Will transition to PO cipro for pyelo, likely dispo tomorrow. #Sepsis 2/2 Pyelonephritis of R Kidney: Met sepsis criteria on admission 2/2 tachycardia, leukocytosis + source of infection. S/p 1L NSS in the ED. CTAP from 03/08 --> Edematous right kidney, mild right perinephritic edema and fluid, mildly inflamed right urinary tract. WBC improving from 18k on 03/08 -> 12k today. Urine culture from 03/08 growing E. coli, pansensitive except Ampicillin Urology consulted. US renal/bladder pending from ED. Continue IV Rocephin. Probiotic added on. PRN pain control, additional 1L LR's x 1 bag. Continue phenazopyridine PRN for dysuria. Blood cultures NGTD 03/11 Clinically improved Patient reports she feels much better Afebrile Transition to cefuroxime 5 mg p.o. twice daily x 7 days Hepatomegaly: Was incidentally noted on CT Abdomen and pelvis yesterday. LFTS stable, no symptoms. 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 = given 1 dose of P.o. fluconazole 150 mg = monitor as outpatient Hypokalemia: K+ 3.2 on admission - repleted via IV 10mEq KCl x 4 bags in the ED. = resolved Other Chronic Medical Conditions: ADHD, depression/anxiety --> Can continue home medications for these specific conditions while admitted. DVT Prophylaxis: SQ Lovenox Code Status: FULL CODE PCP: Rodrigue Diallo MD Disposition: d/ home ff up with PCP in 1 week Admission and Anticipated Discharge Date Admission Date: March 09, 2024 Subjective Follow-up for pyelonephritis, etc. Seen resting in bed, sitting up, comfortable, good spirits States she feels much better overall Denies urinary symptoms, abdominal/flank/back pain Denies fevers or chills, nausea vomiting No other new symptoms States she is ready and would like to be discharged today Review of Systems Review of Systems: all noted and negative except for above Physical Exam Physical Exam: General- oriented x 3, not in distress, speaks in sentences with no effort or accessory muscle use Eyes- anicteric Neck- no JVD Lungs- clear breath sounds bilaterally, no rales/wheezes Heart- normal rate, regular rhythm; no murmurs Abdomen- normal bowel sounds, nondistended, soft, nontender No CVA tenderness Extremities- no pretibial edema, no calf tenderness Neuro- alert, oriented x 3; no gross focal neurologic deficits Skin- warm & dry Results & Data Results & Data Vital Signs (Past 12 Hours) Vital Signs Temp Pulse Pulse Resp BP Pulse Ox O2 Del Method 03/11/24 08:02 36.7 C 83 20 108/74 99 Room Air 03/11/24 07:00 83 03/11/24 02:58 36.7 C 80 16 102/66 98 Room Air all noted and reviewed including below (1) Sepsis Sepsis acute organ dysfunction status: without acute organ dysfunction Sepsis type: sepsis due to unspecified organism Qualified Code(s): A41.9 - Sepsis, unspecified organism
[2024-03-11 11:39] VITALS: BP 110/76; TEMP 97.9; O2SAT 100
[2024-03-11] MEDS: NICOTINE 21 MG/24 HR TDSY TD SCH (12:04)
[2024-03-11] MEDS: FLUCONAZOLE 50 MG TAB PO ONE (12:05)
[2024-03-11 12:39] VITALS: PULSE 79
--- NOTE | 2024-03-11 16:47 | Discharge Summary ---
Discharge Summary Date of Service March 11, 2024 Principal Dx & Hospital Course #1 = Principal Diagnosis (1) Sepsis: (2) Pyelonephritis of right kidney: (3) Hepatomegaly: (4) Oral thrush: (5) Hypokalemia: Plan Per previous hospitalist service notes with addendum: Lilliam Camacho is a 38y/o F with PMHx significant for chronic rhinitis, contact dermatitis, major depressive disorder, ADHD, anxiety and insomnia who presented to the ED on 03/09/2024 secondary to worsening right-sided flank pain. Of note, patient was seen in the ED yesterday due to right-sided flank pain and found to have right-sided pyelonephritis. She received 1g IV Rocephin in the ED and was discharged on a 14-day course of oral Bactrim without significant improvement in her right-sided flank pain. Patient admitted for pyelonephritis. Cultures with fitzpatrick-sensitive ecoli. Will transition to PO cipro for pyelo, likely dispo tomorrow. #Sepsis 2/2 Pyelonephritis of R Kidney: Met sepsis criteria on admission 2/2 tachycardia, leukocytosis + source of infection. S/p 1L NSS in the ED. CTAP from 03/08 --> Edematous right kidney, mild right perinephritic edema and fluid, mildly inflamed right urinary tract. WBC improving from 18k on 03/08 -> 12k today. Urine culture from 03/08 growing E. coli, pansensitive except Ampicillin Urology consulted. US renal/bladder pending from ED. Continue IV Rocephin. Probiotic added on. PRN pain control, additional 1L LR's x 1 bag. Continue phenazopyridine PRN for dysuria. Blood cultures NGTD 03/11 Clinically improved Patient reports she feels much better Afebrile Transition to cefuroxime 5 mg p.o. twice daily x 7 days Hepatomegaly: Was incidentally noted on CT Abdomen and pelvis yesterday. LFTS stable, no symptoms. =Further work up, management, and ff up as outpatient Oral Thrush - TUFTER: Patient being treated for oral thrush TUFTER. = given 1 dose of P.o. fluconazole 150 mg = monitor as outpatient Hypokalemia: K+ 3.2 on admission - repleted via IV 10mEq KCl x 4 bags in the ED. = resolved Other Chronic Medical Conditions: ADHD, depression/anxiety --> Can continue home medications for these specific conditions while admitted. DVT Prophylaxis: SQ Lovenox Code Status: FULL CODE PCP: Rodrigue Diallo MD Disposition: d/ home ff up with PCP in 1 week Notes For Next Care Provider Medication Changes From Visit Cefuroxime 500mg twice a day for 7 days Admission HPI Per Admitting Provider Lilliam Camacho is a 38y/o F with PMHx significant for chronic rhinitis, contact dermatitis, major depressive disorder, ADHD, anxiety and insomnia who presented to the ED on 03/09/2024 secondary to worsening right-sided flank pain. History obtained from patient and associated chart review. Of note, patient was seen and evaluated in the ED yesterday due to right-sided flank pain. Additional complaints per ER documentation at that time included chills/intermittent fevers, foul-smelling urine, urinary urgency and dysuria. UA was positive for infection, WBC was elevated at 18k. CTAP yesterday revealed the following: edematous right kidney, mild right perinephritic edema and fluid, mildly inflamed right urinary tract and hepatomegaly. She received 1g IV Rocephin in the ED and was discharged on a 14-day course of oral Bactrim. Patient reports that the right-sided flank pain has progressively gotten worse since yesterday - mentions this pain started about 3 days ago. She woke up in the middle of the night drenched in sweat and battling chills. No recorded fever overnight however she has had intermittent fevers for the past week or so - highest recorded fever at home was 102F. Her dysuria is improving as she is taking phenazopyridine. She denies any yo blood in her urine however she endorses this is difficult to tell due to the orange-colored appearance her urine has due to taking the phenazopyridine. She still endorses that her urine is foul-smelling. She has been battling some intermittent nausea but no episodes of vomiting. Endorses good hydration status at home however her appetite has been overall poor - most recent meal was last evening and consisted of 2 tacos. She reports that she has been feeling fatigued and overall weak for the past week or so. No prior alcohol use. Patient does smoke cigarettes - approximately 1 pack/day, but has not been smoking over the past 3 days due to this right- sided flank pain. Denies need for nicotine patch at this time. Mentions that she has a medical marijuana card for her anxiety/depression but has not been using any marijuana for the past week or so due to her feeling so ill. She denies any chest pain, SOB or palpitations. She did have 1 episode of diarrhea yesterday morning which has since resolved. She reports her right-sided flank pain is typically sharp and worse with movement. Denies any previous kidney issues or history of recurrent UTIs. Patient does wear dentures at baseline and was being treated for oral thrush prior to arrival - this has not yet resolved entirely. Patient does meet sepsis criteria on admission secondary to tachycardia, leukocytosis and known source of infection. WBC is improving from 18k yesterday to 12.4k today. S/p 2g IV Rocephin, 1L NSS in the ED. She also received IV Zofran and IV morphine in the ED - reports her pain is controlled during our conversation when she is at rest. Admission Exam Per Admitting Provider General: Thin, ill-appearing, vitals as above, NAD, sitting up in bed, pleasant, conversing appropriately. A+Ox3, euthymic affect. HEENT: Normocephalic, atraumatic. Conjunctivae normal, anicteric sclerae. External ear and nose normal, oropharynx little dry. Respiratory: Normal respiratory effort, lungs clear to auscultation, no wheeze/rales/rhonchi. No accessory muscle use. Cardiovascular: Regular rate, rhythm, normal peripheral pulses, no BLE edema. Vessels: No JVD. Abdomen/GI: Active bowel sounds, TTP in RUQ and RLQ regions, R CVA tenderness. N o L CVA tenderness. Extremities/Musculoskeletal: No cyanosis or clubbing, extremities motor strength intact, moves all extremities. Neurologic: No overt focal deficits, CN's II-XI not formally tested but appear grossly intact bilaterally. Skin: No rashes, normal color, warm/dry. Discharge Exam General- oriented x 3, not in distress, speaks in sentences with no effort or accessory muscle use Eyes- anicteric Neck- no JVD Lungs- clear breath sounds bilaterally, no rales/wheezes Heart- normal rate, regular rhythm; no murmurs Abdomen- normal bowel sounds, nondistended, soft, nontender No CVA tenderness Extremities- no pretibial edema, no calf tenderness Neuro- alert, oriented x 3; no gross focal neurologic deficits Skin- warm & dry Updated Medication List Medication Instructions Recorded Confirmed Type dextroamphetamine-amphetamine 20 30 mg PO QAM 05/21/19 03/09/24 History mg tablet (Adderall) escitalopram oxalate 20 mg tablet 30 mg PO QAM 10/08/19 03/09/24 History (Lexapro) alprazolam 0.5 mg tablet 0.5 mg PO BID PRN Anxiety 03/09/24 03/09/24 History cefuroxime axetil 500 mg tablet 500 mg PO BID 7 days #14 tabs 03/11/24 Rx Hospital Stay Data Consultations 03/09/24 12:45 ED Decision to Admit Stat 03/09/24 13:33 Consult Urology Routine Diagnostic Imagining Performed EXAM:CT Abdomen and Pelvis Without Intravenous Contrast INDICATION: Right quadrant pain. Urinary tract infection. TECHNIQUE: Axial computed tomography images of the abdomen and pelvis without intravenous contrast. Sagittal and coronal reformatted images were created and reviewed. This CT exam was performed using one or more of the following dose reduction techniques: automated exposure control, adjustment of the mA and/or kV according to patient size, and/or use of iterative reconstruction technique. COMPARISON: No relevant prior studies available. FINDINGS: Limitations: None. Lung bases: No abnormality noted. Pleural space: No visualized pleural effusion or pneumothorax. Heart: No abnormality noted. Mediastinum: No abnormality noted. ABDOMEN: Liver: The liver is enlarged to 25 cm. Smooth contour. No ductal dilatation. Gallbladder and bile ducts: No calcified stones or surrounding fluid. Pancreas: No pancreatic mass, calcification, inflammation or ductal dilation noted. Spleen: Incidental splenic granulomas noted. Adrenals: No significant abnormality noted. Kidneys and ureters: The right kidney is edematous. There is mild right perinephric edema and fluid. The right ureter is poorly defined and is likely inflamed. The left kidney may be incidentally. No intrarenal stones. No perinephric gas. Stomach and bowel: Moderate amounts of formed stool throughout the colon. No obstruction. No evident thickening allowing for limitations of lack of opacification. PELVIS: Appendix: Nonvisualization of the appendix. No right lower quadrant inflammatory process noted. Bladder: Appears normal for the degree of filling. No stones or inflammation. No large mass. Masses may not be detected in the absence of opacification. Reproductive: No abnormalities noted. ABDOMEN and PELVIS: Intraperitoneal space: No free air. No significant fluid collection. Bones/joints: No acute changes. Soft tissues: No significant abnormality noted. Vasculature: No abdominal aortic aneurysm. Lymph nodes: No pathologically enlarged lymph nodes. IMPRESSION: 1. The right urinary tract is mildly inflamed without evidence stone or gas. Consider recently passed stone and pyelonephritis. 2. Hepatomegaly. 3. Nonvisualization of the appendix. No right lower quadrant inflammatory process noted. ACT 112: Negative or not required by law. Electronically signed by Jazmin Bell 03-08-2024 4:07 PM Dictated: 03/08/24 [id number] Transcribed: 03/09/24 12:10 US Renal Bladder [US renal/blad retro comp] Stat CLINICAL HISTORY: flank pain TECHNIQUE: Multiple sonographic real-time images of the kidneys and bladder were obtained. COMPARISON: Comparison is made to CT abdomen pelvis 03/08/2024 FINDINGS: The right kidney measures 14.9 cm in length, and the left kidney measures 13.9 cm in length. The right kidney is normal in size, contour, cortical thickness, and is mildly heterogeneous. No hydronephrosis is identified. No renal lesion is identified. The left kidney is normal in size, contour, cortical thickness and is mildly heterogeneous. No hydronephrosis is identified. No renal lesion is identified. The bladder is partially distended. No large intraluminal mass is seen. IMPRESSION: No acute abnormalities and in particular no evidence of obstruction. Heterogeneous echotexture of the kidneys is nonspecific. ACT 112: Negative or not required by law. Electronically signed by: Channing Prather M.D. 03/09/2024 2:37 PM Pending Results Patient Have Any Pending Studies at Discharge: No Discharge Instructions Given to Patient (Per Discharging Provider) PLEASE REFER TO YOUR NEW MEDICATION LIST AND FOLLOW INSTRUCTIONS CAREFULLY. YOUR NEW MEDICATIONS INCLUDE: Cefuroxime 500mg twice a day for 7 days Please take a probiotic daily for at least a month (renew life brand recommended) and also eat yogurt daily to prevent C. difficile diarrhea. PLEASE CALL YOUR PRIMARY CARE PHYSICIAN OR RETURN TO THE ER IF WITH WORSENING OF SYMPTOMS, INCLUDING Abdominal/flank/back pain, problems with urination including pain/blood/foul odor, fevers or chills, nausea or vomiting, weakness, diarrhea etc. FOLLOW UP WITH PRIMARY CARE PHYSICIAN OUTLINED ABOVE. Total Time Total Time Spent Total Time Spent (In Minutes): 45 minutes
== END 2024-03-11 14:43 | disposition home or self-care (01) | DRG 872 ==
LOC: ED 11:58 → SUATTDRO 12:52 → INTOOBSV 12:52 → 2N 12:52